=== PATIENT | female | born 1965 | race Caucasian/White ===

== ENCOUNTER 2019-06-14 08:09 | Observation (INO) ==
[2019-06-14] MEDS ORDERED: Naloxone 0.4 MG/ML INJ IVP PRN (10:51)
[2019-06-14] MEDS ORDERED: Ondansetron 4 MG/2 ML VIAL IVP PRN (10:51)
[2019-06-14] MEDS ORDERED: Furosemide 40 MG/4 ML VIAL IVP ONE (11:42)
[2019-06-14] MEDS ORDERED: *HR* Metoprolol 5 MG/5 ML VIAL IVP PRN (11:43)
[2019-06-14 13:34] LABS: Adenovirus Not Detected (Not Detect); Bordetella Pertussis Not Detected (Not Detect); Chlamydophila pneumoniae Not Detected (Not Detect); Coronavirus 229E Not Detected (Not Detect); Coronavirus HKU1 Not Detected (Not Detect); Coronavirus NL63 Not Detected (Not Detect); Coronavirus OC43 Not Detected (Not Detect); Human Metapneumovirus Not Detected (Not Detect); Human Rhinovirus/Enterovirus Not Detected (Not Detect); Influenza A Subtype 2009 H1 Not Detected (Not Detect); Influenza B Not Detected (Not Detect); Mycoplasma pneumoniae Not Detected (Not Detect); Parainfluenza Virus 1 Not Detected (Not Detect); Parainfluenza Virus 2 Not Detected (Not Detect); Parainfluenza Virus 3 Not Detected (Not Detect); Parainfluenza Virus 4 Not Detected (Not Detect); Respiratory Syncytial Virus Not Detected (Not Detect)
[2019-06-14] MEDS: Ipratropium/Albuterol Neb 3 ML IH SCH ×4 (15:33→23:26)
[2019-06-14] MEDS: MethylPREDNISolone 40 MG/ML VIAL IVP SCH (18:17)
[2019-06-15] MEDS: Ipratropium/Albuterol Neb 3 ML IH SCH ×5 (03:39→19:58)
[2019-06-15] MEDS: MethylPREDNISolone 40 MG/ML VIAL IVP SCH ×2 (05:14→16:47)
[2019-06-15 05:30] LABS: Basophils % 0.2 %; Hematocrit 39.7 % (35.3-44.9); Hemoglobin 12.3 g/dL (11.5-15.4); Immature Granulocytes % 0.9 % (0-4); Lymphocytes # 1.8 K/mcL (0.6-4.6); Lymphocytes % 10.2 %; Mean Corpuscular Hemoglobin 28.6 pg (28.0-33.3); Mean Corpuscular Volume 92.3 fL (83.0-100.0); Mean Platelet Volume 10.4 fL (9.4-12.4); Monocytes # 0.7 K/mcL (0.0-1.3); Monocytes % 4.1 %; Neutrophils # 14.9 K/mcL (1.6-8.9); Platelet Count 314 K/mcL (140-400); Red Cell Distribution Width 14.7 % (11.5-14.5); Segmented Neutrophils % 84.6 %; White Blood Count 17.6 K/mcL (4.3-11.1)
[2019-06-15 05:47] LABS: BUN/Creatinine Ratio 26 (6-26); Blood Urea Nitrogen 18 mg/dL (6-20); Calcium 9.1 mg/dL (8.6-10.3); Carbon Dioxide 31 mEq/L (23-29); Chloride 105 mEq/L (98-107); Glucose 183 mg/dL (70-105); Magnesium 2.1 mg/dL (1.6-2.6); Osmolality,Calculated 297 (280-300); Potassium 4.6 mEq/L (3.5-5.1); Sodium 140 mEq/L (136-145); eGFR For African Americans > 60 (> 60); eGFR For Non-African Americans > 60 (> 60)
[2019-06-15] MEDS ORDERED: Perflutren Lipid Microsphere 1.3 ML in 0.9 % Sodium Chloride 8.7 ML IVP ONE (07:25)
[2019-06-15] MEDS: Azithromycin 500 MG in 0.9 % Sodium Chloride 250 ML IVPB SCH (09:05)
[2019-06-15] MEDS: *HR* Rivaroxaban 10 MG TABLET PO SCH (16:46)
[2019-06-15] MEDS ORDERED: EPINEPHrine 1 MG/ML VIAL IM PRN (17:39)
[2019-06-15] MEDS ORDERED: Baclofen 10 MG TABLET PO PRN (17:39)
[2019-06-15] MEDS: Budesonide/Formoterol 160/4.5 1 PUFF INH IH SCH (19:59)
[2019-06-15] MEDS: Furosemide 40 MG TABLET PO SCH (21:07)
[2019-06-15] MEDS: Gabapentin 300 MG CAPSULE PO SCH (21:07)
[2019-06-16] MEDS: Ipratropium/Albuterol Neb 3 ML IH SCH ×6 (00:18→20:38)
[2019-06-16 05:02] LABS: Basophils % 0.2 %; Hematocrit 41.3 % (35.3-44.9); Hemoglobin 12.7 g/dL (11.5-15.4); Immature Granulocytes % 0.6 % (0-4); Lymphocytes # 2.8 K/mcL (0.6-4.6); Lymphocytes % 13.4 %; Mean Corpuscular HGB Conc 30.8 g/dL (31.6-35.5); Mean Corpuscular Hemoglobin 28.4 pg (28.0-33.3); Mean Corpuscular Volume 92.4 fL (83.0-100.0); Mean Platelet Volume 10.4 fL (9.4-12.4); Monocytes # 1.1 K/mcL (0.0-1.3); Monocytes % 5.5 %; Neutrophils # 16.6 K/mcL (1.6-8.9); Platelet Count 316 K/mcL (140-400); Red Blood Count 4.47 M/mcL (3.82-4.97); Red Cell Distribution Width 14.8 % (11.5-14.5); Segmented Neutrophils % 80.3 %; White Blood Count 20.6 K/mcL (4.3-11.1)
[2019-06-16] MEDS: MethylPREDNISolone 40 MG/ML VIAL IVP SCH ×2 (05:04→18:06)
[2019-06-16 05:15] LABS: BUN/Creatinine Ratio 38 (6-26); Blood Urea Nitrogen 26 mg/dL (6-20); Calcium 9.4 mg/dL (8.6-10.3); Carbon Dioxide 31 mEq/L (23-29); Chloride 103 mEq/L (98-107); Glucose 153 mg/dL (70-105); Osmolality,Calculated 294 (280-300); Sodium 138 mEq/L (136-145); eGFR For African Americans > 60 (> 60); eGFR For Non-African Americans > 60 (> 60)
[2019-06-16] MEDS: Budesonide/Formoterol 160/4.5 1 PUFF INH IH SCH ×2 (07:50→20:38)
[2019-06-16] MEDS: Aspirin Enteric Coated 81 MG Tablet PO SCH (08:05)
[2019-06-16] MEDS: Furosemide 40 MG TABLET PO SCH ×2 (08:05→15:21)
[2019-06-16] MEDS: Gabapentin 300 MG CAPSULE PO SCH ×3 (08:05→19:31)
[2019-06-16] MEDS: Cholecalciferol (D-3) 1,000 UNIT (25MCG) TABLET PO SCH (08:06)
[2019-06-16] MEDS: Azithromycin 500 MG in 0.9 % Sodium Chloride 250 ML IVPB SCH (08:10)
[2019-06-16] MEDS ORDERED: NON-FORMULARY MEDICATION 1 EACH EACH (Fluticasone/Vilanterol [Breo Ellipta 100-25 Mcg Inh] IH SCH (09:00)
[2019-06-16] MEDS: *HR* Rivaroxaban 10 MG TABLET PO SCH (15:21)
[2019-06-16] MEDS ORDERED: Benzonatate 100 MG CAPSULE PO PRN (16:10)
[2019-06-16] MEDS ORDERED: Acetaminophen 325 MG TABLET PO PRN (22:11)
[2019-06-16] MEDS ORDERED: *HR* OxyCODONE Immed Rel 5 MG TABLET PO PRN (23:16)
[2019-06-17] MEDS: Ipratropium/Albuterol Neb 3 ML IH SCH ×6 (00:23→20:16)
[2019-06-17] MEDS ORDERED: *HR* FentaNYL (PF) 100 MCG/2 ML VIAL IVP ONE (01:03)
[2019-06-17 04:22] LABS: Basophils % 0.2 %; Eosinophils % 0.1 %; Hematocrit 41.9 % (35.3-44.9); Hemoglobin 12.5 g/dL (11.5-15.4); Immature Granulocytes % 0.8 % (0-4); Lymphocytes # 1.9 K/mcL (0.6-4.6); Lymphocytes % 9.7 %; Mean Corpuscular HGB Conc 29.8 g/dL (31.6-35.5); Mean Corpuscular Hemoglobin 28.9 pg (28.0-33.3); Mean Platelet Volume 10.3 fL (9.4-12.4); Neutrophils # 16.1 K/mcL (1.6-8.9); Platelet Count 313 K/mcL (140-400); Red Blood Count 4.32 M/mcL (3.82-4.97); Red Cell Distribution Width 14.8 % (11.5-14.5); Segmented Neutrophils % 84.2 %; White Blood Count 19.1 K/mcL (4.3-11.1)
[2019-06-17 04:45] LABS: BUN/Creatinine Ratio 34 (6-26); Blood Urea Nitrogen 32 mg/dL (6-20); Calcium 9.2 mg/dL (8.6-10.3); Carbon Dioxide 32 mEq/L (23-29); Chloride 99 mEq/L (98-107); Glucose 188 mg/dL (70-105); Osmolality,Calculated 294 (280-300); Potassium 4.8 mEq/L (3.5-5.1); Sodium 136 mEq/L (136-145); eGFR For African Americans > 60 (> 60); eGFR For Non-African Americans > 60 (> 60)
[2019-06-17] MEDS: MethylPREDNISolone 40 MG/ML VIAL IVP SCH ×2 (05:38→17:52)
[2019-06-17] MEDS: Budesonide/Formoterol 160/4.5 1 PUFF INH IH SCH ×2 (07:20→20:16)
[2019-06-17] MEDS: Aspirin Enteric Coated 81 MG Tablet PO SCH (08:55)
[2019-06-17] MEDS: Cholecalciferol (D-3) 1,000 UNIT (25MCG) TABLET PO SCH (08:55)
[2019-06-17] MEDS: Gabapentin 300 MG CAPSULE PO SCH ×3 (08:55→19:35)
[2019-06-17] MEDS: Furosemide 40 MG TABLET PO SCH ×2 (08:55→15:31)
[2019-06-17] MEDS: Azithromycin 500 MG in 0.9 % Sodium Chloride 250 ML IVPB SCH (08:56)
[2019-06-17] MEDS: *HR* Rivaroxaban 10 MG TABLET PO SCH (15:30)
[2019-06-18] MEDS: Ipratropium/Albuterol Neb 3 ML IH SCH ×4 (00:05→10:46)
[2019-06-18] MEDS: MethylPREDNISolone 40 MG/ML VIAL IVP SCH (05:00)
[2019-06-18 05:51] LABS: Basophils # 0.1 K/mcL (0.0-0.2); Basophils % 0.3 %; Hematocrit 43.4 % (35.3-44.9); Hemoglobin 13.2 g/dL (11.5-15.4); Immature Granulocytes % 0.7 % (0-4); Lymphocytes # 2.1 K/mcL (0.6-4.6); Mean Corpuscular HGB Conc 30.4 g/dL (31.6-35.5); Mean Corpuscular Hemoglobin 28.6 pg (28.0-33.3); Mean Corpuscular Volume 94.1 fL (83.0-100.0); Mean Platelet Volume 10.6 fL (9.4-12.4); Monocytes # 1.3 K/mcL (0.0-1.3); Monocytes % 6.8 %; Neutrophils # 15.2 K/mcL (1.6-8.9); Platelet Count 330 K/mcL (140-400); Red Blood Count 4.61 M/mcL (3.82-4.97); Red Cell Distribution Width 15.1 % (11.5-14.5); Segmented Neutrophils % 81.2 %; White Blood Count 18.7 K/mcL (4.3-11.1)
[2019-06-18 06:13] LABS: BUN/Creatinine Ratio 43 (6-26); Blood Urea Nitrogen 34 mg/dL (6-20); Carbon Dioxide 36 mEq/L (23-29); Chloride 98 mEq/L (98-107); Glucose 158 mg/dL (70-105); Osmolality,Calculated 303 (280-300); Potassium 4.7 mEq/L (3.5-5.1); Sodium 141 mEq/L (136-145); eGFR For African Americans > 60 (> 60); eGFR For Non-African Americans > 60 (> 60)
[2019-06-18] MEDS: Budesonide/Formoterol 160/4.5 1 PUFF INH IH SCH (07:16)
[2019-06-18] MEDS: Gabapentin 300 MG CAPSULE PO SCH (08:22)
[2019-06-18] MEDS: Aspirin Enteric Coated 81 MG Tablet PO SCH (08:22)
[2019-06-18] MEDS: Furosemide 40 MG TABLET PO SCH (08:22)
[2019-06-18] MEDS: Cholecalciferol (D-3) 1,000 UNIT (25MCG) TABLET PO SCH (08:23)
[2019-06-18] MEDS: Azithromycin 500 MG in 0.9 % Sodium Chloride 250 ML IVPB SCH ×2 (08:23→08:59)
[2019-06-18 10:22] VITALS: BP 123/71
[2019-06-19] MEDS ORDERED: predniSONE 20 MG TABLET PO SCH (09:00)
[2019-06-27] MEDS ORDERED: Cyanocobalamin (B-12) 1,000 MCG/ML VIAL IM SCH (09:00)
== END 2019-06-18 12:59 | disposition home or self-care (01) ==
LOC: CDU → SUATTDRO 10:21 → CDU 10:42 → 3BNU 16:27
PROVIDERS: ADMIT Internal Medicine; ATTEND Family Medicine

== ENCOUNTER 2019-07-22 16:21 | Inpatient (IN) ==
[~2019-07-22 16:21] MED LIST: *HR* Etomidate 20 MG/10 ML AMPUL IVP ONE; *HR* Propofol 200 MG/20 ML VIAL IVP ONE; *HR* Succinylcholine 200 MG/10 ML VIAL IVP ONE; Aminoglycoside Consult 1 EACH MC ONE
[2019-07-22] MEDS ORDERED: Acetaminophen 325 MG TABLET PO PRN (20:08)
[2019-07-22] MEDS ORDERED: Naloxone 0.4 MG/ML INJ IVP PRN (20:08)
[2019-07-22] MEDS ORDERED: Ondansetron 4 MG/2 ML VIAL IVP PRN (20:08)
[2019-07-22 20:43] LABS: ABG Base Excess 5 mEq/L (-2 to 3); ABG HCO3 37 mEq/L (21-27); ABG Oxygen Saturation 89 % (95-98); ABG PCO2 97 mmHg (35-45); ABG PH 7.19 pH Units (7.32-7.45); ABG PO2 74 mmHg (85-104); ABG TCO2 40 mEq/L (20-26)
[2019-07-22 20:47] LABS: Lymphocytes % 5.1 %; Mean Corpuscular Volume 98.7 fL (83.0-100.0); Mean Platelet Volume 10.4 fL (9.4-12.4); Monocytes % 0.8 %; Nucleated Red Blood Cells 0.7 /100 WBC (0)
[2019-07-22 20:48] LABS: Basophils # 0.1 K/mcL (0.0-0.2); Basophils % 0.4 %; Hematocrit 45.5 % (35.3-44.9); Immature Granulocytes % 1.6 % (0-4); Mean Corpuscular HGB Conc 28.6 g/dL (31.6-35.5); Mean Corpuscular Hemoglobin 28.2 pg (28.0-33.3); Monocytes # 0.2 K/mcL (0.0-1.3); Neutrophils # 18.4 K/mcL (1.6-8.9); Platelet Count 278 K/mcL (140-400); Red Blood Count 4.61 M/mcL (3.82-4.97); Red Cell Distribution Width 16.6 % (11.5-14.5); Segmented Neutrophils % 92.1 %
[2019-07-22 21:07] LABS: Anisocytosis 1+ (Not Present); Hypochromasia Present (Not Present); Macrocytosis Present (Not Present); Platelet Estimate Normal (Normal); Polychromasia 1+ (Not Present)
[2019-07-22 21:38] LABS: Alanine Aminotransferase 35 Units/L (7-52); Albumin 3.7 g/dL (3.5-5.7); Albumin/Globulin Ratio 1.1 (1.1-2.2); Alkaline Phosphatase 119 Units/L (34-104); Aspartate Amino Transferase 21 Units/L (13-39); BUN/Creatinine Ratio 25 (6-26); Bilirubin,Total 0.4 mg/dL (0.3-1.0); Blood Urea Nitrogen 26 mg/dL (6-20); Carbon Dioxide 34 mEq/L (23-29); Chloride 100 mEq/L (98-107); Globulin 3.4 g/dL (2.4-3.5); Glucose 168 mg/dL (70-105); Osmolality,Calculated 297 (280-300); Potassium 5.1 mEq/L (3.5-5.1); Sodium 139 mEq/L (136-145); Total Protein 7.1 g/dL (6.4-8.9); eGFR For African Americans > 60 (> 60); eGFR For Non-African Americans 55 (> 60)
[2019-07-22] MEDS ORDERED: *HR* Heparin 5,000 UNIT/ML VIAL IVP PRN ×2 (22:01)
[2019-07-22] MEDS ORDERED: *HR* Heparin 5,000 UNIT/ML VIAL IVP ONE (22:01)
[2019-07-22] MEDS ORDERED: Furosemide 40 MG/4 ML VIAL IVP ONE (22:06)
[2019-07-22] MEDS ORDERED: Heparin 25,000 UNIT/250 ML D5W 25,000 UNIT/250 ML IV.SOLN IVC SCH (22:15)
[2019-07-22 22:39] LABS: Hematocrit 45.1 % (35.3-44.9); Hemoglobin 12.7 g/dL (11.5-15.4); Mean Corpuscular HGB Conc 28.2 g/dL (31.6-35.5); Mean Corpuscular Hemoglobin 27.7 pg (28.0-33.3); Mean Corpuscular Volume 98.5 fL (83.0-100.0); Mean Platelet Volume 10.8 fL (9.4-12.4); Platelet Count 293 K/mcL (140-400); Red Blood Count 4.58 M/mcL (3.82-4.97); Red Cell Distribution Width 16.7 % (11.5-14.5); White Blood Count 18.1 K/mcL (4.3-11.1)
[2019-07-22 22:49] LABS: Heparin anti-factor XA UFH 0.26 IU/mL (0.30-0.70); INR 1.2; Prothrombin Time 13.5 Seconds (9.4-12.1)
[2019-07-22] MEDS: FentaNYL (PF) 1,000 MCG in 0.9 % Sodium Chloride 80 ML IVC SCH (22:49)
[2019-07-22 23:59] LABS: ABG Base Excess 9 mEq/L (-2 to 3); ABG HCO3 38 mEq/L (21-27); ABG Oxygen Saturation 91 % (95-98); ABG PCO2 72 mmHg (35-45); ABG PH 7.33 pH Units (7.32-7.45); ABG PO2 69 mmHg (85-104); ABG TCO2 41 mEq/L (20-26); Blood Gas Modality ASSIST CONTROL; Blood Gas VT 600 cc
[2019-07-23] MEDS ORDERED: Piperacillin/Tazobactam 3.375 GM in 0.9 % Sodium Chloride Mini Bag 100 ML IVPB SCH
[2019-07-23 02:33] LABS: Basophils % 0.2 %; INR 1.3; Mean Platelet Volume 10.6 fL (9.4-12.4); Monocytes % 2.2 %; Platelet Count 256 K/mcL (140-400); Prothrombin Time 14.3 Seconds (9.4-12.1)
[2019-07-23 02:34] LABS: Hematocrit 42.7 % (35.3-44.9); Hemoglobin 12.4 g/dL (11.5-15.4); Immature Granulocytes % 1.1 % (0-4); Lymphocytes # 1.8 K/mcL (0.6-4.6); Lymphocytes % 9.6 %; Mean Corpuscular Volume 96.4 fL (83.0-100.0); Monocytes # 0.4 K/mcL (0.0-1.3); Neutrophils # 16.4 K/mcL (1.6-8.9); Nucleated Red Blood Cells 0.8 /100 WBC (0); Red Blood Count 4.43 M/mcL (3.82-4.97); Red Cell Distribution Width 16.6 % (11.5-14.5); Segmented Neutrophils % 86.9 %; White Blood Count 18.9 K/mcL (4.3-11.1)
[2019-07-23 02:51] LABS: Alanine Aminotransferase 31 Units/L (7-52); Albumin 3.5 g/dL (3.5-5.7); Albumin/Globulin Ratio 1.2 (1.1-2.2); Alkaline Phosphatase 107 Units/L (34-104); Aspartate Amino Transferase 17 Units/L (13-39); BUN/Creatinine Ratio 27 (6-26); Bilirubin,Total 0.5 mg/dL (0.3-1.0); Blood Urea Nitrogen 27 mg/dL (6-20); Carbon Dioxide 33 mEq/L (23-29); Chloride 99 mEq/L (98-107); Globulin 2.9 g/dL (2.4-3.5); Glucose 178 mg/dL (70-105); Magnesium 2.1 mg/dL (1.6-2.6); Osmolality,Calculated 300 (280-300); Potassium 4.4 mEq/L (3.5-5.1); Sodium 140 mEq/L (136-145); Total Protein 6.4 g/dL (6.4-8.9); eGFR For African Americans > 60 (> 60); eGFR For Non-African Americans 59 (> 60)
[2019-07-23] MEDS: Artificial Tears SOLN 15 ML BOTTLE BOTH EYES SCH ×6 (03:22→23:03)
[2019-07-23 03:31] LABS: Anisocytosis 1+ (Not Present); Hypochromasia Present (Not Present); Macrocytosis Present (Not Present); Platelet Estimate Normal (Normal); Polychromasia 1+ (Not Present)
[2019-07-23 04:29] LABS: ABG Base Excess 12 mEq/L (-2 to 3); ABG HCO3 40 mEq/L (21-27); ABG Oxygen Saturation 92 % (95-98); ABG PCO2 64 mmHg (35-45); ABG PO2 66 mmHg (85-104); ABG TCO2 42 mEq/L (20-26); Blood Gas Modality ASSIST CONTROL; Blood Gas VT 600 cc
[2019-07-23 06:08] LABS: Adenovirus Not Detected (Not Detect); Bordetella Pertussis Not Detected (Not Detect); Chlamydophila pneumoniae Not Detected (Not Detect); Coronavirus 229E Not Detected (Not Detect); Coronavirus HKU1 Not Detected (Not Detect); Coronavirus NL63 Not Detected (Not Detect); Coronavirus OC43 Not Detected (Not Detect); Human Metapneumovirus Not Detected (Not Detect); Human Rhinovirus/Enterovirus Not Detected (Not Detect); Influenza A Subtype 2009 H1 Not Detected (Not Detect); Influenza B Not Detected (Not Detect); Mycoplasma pneumoniae Not Detected (Not Detect); Parainfluenza Virus 1 Not Detected (Not Detect); Parainfluenza Virus 2 Not Detected (Not Detect); Parainfluenza Virus 3 Not Detected (Not Detect); Parainfluenza Virus 4 Not Detected (Not Detect); Respiratory Syncytial Virus Not Detected (Not Detect)
[2019-07-23] MEDS ORDERED: Isovue-370 500 ML BOTTLE IVP ONE (07:38)
[2019-07-23] MEDS ORDERED: Ipratropium/Albuterol Neb 3 ML IH ONE (07:51)
[2019-07-23] MEDS ORDERED: Perflutren Lipid Microsphere 1.3 ML in 0.9 % Sodium Chloride 8.7 ML IVP ONE (08:57)
[2019-07-23] MEDS ORDERED: Furosemide 40 MG/4 ML VIAL IVP SCH (09:00)
[2019-07-23] MEDS: Chlorhexidine Rinse 15 ML MOUTHWASH MM SCH ×2 (09:01→21:17)
[2019-07-23] MEDS: Pantoprazole 40 MG VIAL IVP SCH (09:01)
[2019-07-23] MEDS: methylPREDNISolone 125 MG/2 ML VIAL IVP SCH ×2 (09:16→16:54)
[2019-07-23] MEDS: Albuterol 2.5 MG/3 ML NEBULIZER IH SCH ×5 (09:53→23:32)
[2019-07-23] MEDS: Azithromycin 500 MG in 0.9 % Sodium Chloride 250 ML IVPB SCH (10:36)
[2019-07-23] MEDS: Cefepime HCl 1,000 MG in Water for inj. (sterile) 10 ML IVP SCH ×3 (10:36→23:04)
[2019-07-23] MEDS: Budesonide/Formoterol 80/4.5 1 PUFF INH IH SCH ×2 (11:01→19:32)
[2019-07-23 12:38] LABS: ABG Base Excess 11 mEq/L (-2 to 3); ABG HCO3 42 mEq/L (21-27); ABG Oxygen Saturation 92 % (95-98); ABG PCO2 85 mmHg (35-45); ABG PO2 76 mmHg (85-104); ABG TCO2 45 mEq/L (20-26); Blood Gas Modality AF; Blood Gas VT 500 cc
[2019-07-23] MEDS ORDERED: Potassium Phosphate 44 MEQ in 0.9 % Sodium Chloride 250 ML IVPB PRN (13:01)
[2019-07-23 14:28] LABS: ABG Base Excess 11 mEq/L (-2 to 3); ABG HCO3 40 mEq/L (21-27); ABG Oxygen Saturation 91 % (95-98); ABG PCO2 71 mmHg (35-45); ABG PH 7.36 pH Units (7.32-7.45); ABG PO2 66 mmHg (85-104); ABG TCO2 42 mEq/L (20-26); Blood Gas Modality AF; Blood Gas VT 520 cc
[2019-07-23] MEDS: Bumetanide 1 MG/4 ML VIAL IVP SCH (14:36)
[2019-07-23] MEDS: FentaNYL (PF) 1,000 MCG in 0.9 % Sodium Chloride 80 ML IVC SCH (16:30)
[2019-07-23] MEDS ORDERED: Bumetanide 1 MG/4 ML VIAL IVP SCH (17:00)
[2019-07-23] MEDS ORDERED: Albuterol 2.5 MG/3 ML NEBULIZER ONE (19:37)
[2019-07-23] MEDS: *HR* Heparin 5,000 UNIT/ML VIAL SQ SCH (21:17)
[2019-07-24] MEDS: Albuterol 2.5 MG/3 ML NEBULIZER IH SCH ×6 (03:00→23:45)
[2019-07-24] MEDS: Artificial Tears SOLN 15 ML BOTTLE BOTH EYES SCH ×6 (04:19→23:22)
[2019-07-24 04:47] LABS: Lymphocytes % 5.5 %; Red Cell Distribution Width 17.2 % (11.5-14.5)
[2019-07-24 04:48] LABS: Nucleated Red Blood Cells 0.3 /100 WBC (0)
[2019-07-24 04:49] LABS: Basophils % 0.2 %; Hematocrit 42.8 % (35.3-44.9); Hemoglobin 12.7 g/dL (11.5-15.4); Immature Granulocytes % 0.9 % (0-4); Lymphocytes # 0.8 K/mcL (0.6-4.6); Mean Corpuscular HGB Conc 29.7 g/dL (31.6-35.5); Mean Corpuscular Hemoglobin 28.2 pg (28.0-33.3); Mean Corpuscular Volume 95.1 fL (83.0-100.0); Mean Platelet Volume 10.6 fL (9.4-12.4); Monocytes # 0.8 K/mcL (0.0-1.3); Platelet Count 252 K/mcL (140-400); Segmented Neutrophils % 88.4 %; White Blood Count 15.1 K/mcL (4.3-11.1)
[2019-07-24 04:51] LABS: VBG Ionized Calcium 1.16 mmol/L (1.15-1.35)
[2019-07-24 04:59] LABS: ABG Base Excess 11 mEq/L (-2 to 3); ABG HCO3 40 mEq/L (21-27); ABG Oxygen Saturation 94 % (95-98); ABG PCO2 69 mmHg (35-45); ABG PH 7.37 pH Units (7.32-7.45); ABG PO2 75 mmHg (85-104); ABG TCO2 42 mEq/L (20-26); Blood Gas Modality ASSIST CONTROL; Blood Gas VT 520 cc
[2019-07-24] MEDS: methylPREDNISolone 125 MG/2 ML VIAL IVP SCH ×2 (05:05→17:03)
[2019-07-24] MEDS: *HR* Heparin 5,000 UNIT/ML VIAL SQ SCH ×3 (05:05→20:23)
[2019-07-24 05:07] LABS: Alanine Aminotransferase 25 Units/L (7-52); Albumin 3.6 g/dL (3.5-5.7); Albumin/Globulin Ratio 1.2 (1.1-2.2); Alkaline Phosphatase 94 Units/L (34-104); Aspartate Amino Transferase 11 Units/L (13-39); BUN/Creatinine Ratio 38 (6-26); Bilirubin,Direct 0.2 mg/dL (0.0-0.2); Bilirubin,Indirect 0.2 mg/dL (0.0-1.0); Bilirubin,Total 0.4 mg/dL (0.3-1.0); Blood Urea Nitrogen 34 mg/dL (6-20); Calcium 9.2 mg/dL (8.6-10.3); Carbon Dioxide 34 mEq/L (23-29); Chloride 98 mEq/L (98-107); Glucose 171 mg/dL (70-105); Magnesium 2.4 mg/dL (1.6-2.6); Osmolality,Calculated 304 (280-300); Sodium 141 mEq/L (136-145); Total Protein 6.6 g/dL (6.4-8.9); eGFR For African Americans > 60 (> 60); eGFR For Non-African Americans > 60 (> 60)
[2019-07-24 05:14] LABS: Neutrophils # 13.4 K/mcL (1.6-8.9)
[2019-07-24 05:15] LABS: Anisocytosis 1+ (Not Present); Hypochromasia Present (Not Present); Platelet Estimate Normal (Normal)
[2019-07-24] MEDS: Budesonide/Formoterol 80/4.5 1 PUFF INH IH SCH ×2 (07:33→19:42)
[2019-07-24] MEDS: Chlorhexidine Rinse 15 ML MOUTHWASH MM SCH ×2 (08:52→20:23)
[2019-07-24] MEDS: Bumetanide 1 MG/4 ML VIAL IVP SCH ×2 (08:53→17:03)
[2019-07-24] MEDS: Pantoprazole 40 MG VIAL IVP SCH (08:53)
[2019-07-24] MEDS: Cefepime HCl 1,000 MG in Water for inj. (sterile) 10 ML IVP SCH ×3 (08:53→23:21)
[2019-07-24] MEDS: Azithromycin 500 MG in 0.9 % Sodium Chloride 250 ML IVPB SCH (08:53)
[2019-07-24] MEDS: FentaNYL (PF) 1,000 MCG in 0.9 % Sodium Chloride 80 ML IVC SCH (14:29)
[2019-07-25] MEDS: Albuterol 2.5 MG/3 ML NEBULIZER IH SCH ×5 (03:50→20:44)
[2019-07-25] MEDS: Artificial Tears SOLN 15 ML BOTTLE BOTH EYES SCH ×6 (03:57→23:30)
[2019-07-25 04:33] LABS: ABG Base Excess 11 mEq/L (-2 to 3); ABG HCO3 42 mEq/L (21-27); ABG Oxygen Saturation 88 % (95-98); ABG PCO2 86 mmHg (35-45); ABG PO2 64 mmHg (85-104); ABG TCO2 45 mEq/L (20-26); Blood Gas Modality AF; Blood Gas VT 520 cc
[2019-07-25 05:58] LABS: Basophils % 0.1 %; Lymphocytes % 6.8 %; Monocytes % 6.2 %; Nucleated Red Blood Cells 0.1 /100 WBC (0); Red Cell Distribution Width 17.1 % (11.5-14.5)
[2019-07-25 05:59] LABS: Hematocrit 44.5 % (35.3-44.9); Hemoglobin 12.7 g/dL (11.5-15.4); Immature Granulocytes % 0.7 % (0-4); Mean Corpuscular HGB Conc 28.5 g/dL (31.6-35.5); Mean Corpuscular Hemoglobin 27.5 pg (28.0-33.3); Mean Corpuscular Volume 96.3 fL (83.0-100.0); Mean Platelet Volume 10.3 fL (9.4-12.4); Monocytes # 0.9 K/mcL (0.0-1.3); Neutrophils # 12.6 K/mcL (1.6-8.9); Platelet Count 253 K/mcL (140-400); Red Blood Count 4.62 M/mcL (3.82-4.97); Segmented Neutrophils % 86.2 %; White Blood Count 14.6 K/mcL (4.3-11.1)
[2019-07-25 06:00] LABS: VBG Ionized Calcium 1.09 mmol/L (1.15-1.35)
[2019-07-25] MEDS: *HR* Heparin 5,000 UNIT/ML VIAL SQ SCH (06:03)
[2019-07-25] MEDS: methylPREDNISolone 125 MG/2 ML VIAL IVP SCH ×2 (06:03→17:28)
[2019-07-25 06:16] LABS: Anisocytosis 1+ (Not Present); Hypochromasia Present (Not Present); Platelet Estimate Normal (Normal)
[2019-07-25 06:20] LABS: BUN/Creatinine Ratio 51 (6-26); Blood Urea Nitrogen 39 mg/dL (6-20); Calcium 9.1 mg/dL (8.6-10.3); Carbon Dioxide 38 mEq/L (23-29); Chloride 98 mEq/L (98-107); Glucose 154 mg/dL (70-105); Magnesium 2.6 mg/dL (1.6-2.6); Osmolality,Calculated 302 (280-300); Phosphorous 5.9 mg/dL (2.7-4.5); Potassium 4.3 mEq/L (3.5-5.1); Sodium 140 mEq/L (136-145); eGFR For African Americans > 60 (> 60); eGFR For Non-African Americans > 60 (> 60)
[2019-07-25] MEDS: Budesonide/Formoterol 80/4.5 1 PUFF INH IH SCH ×2 (07:35→20:44)
[2019-07-25] MEDS: FentaNYL (PF) 1,000 MCG in 0.9 % Sodium Chloride 80 ML IVC SCH (08:59)
[2019-07-25] MEDS ORDERED: *HR* Heparin 5,000 UNIT/ML VIAL IVP PRN ×2 (09:08)
[2019-07-25] MEDS ORDERED: *HR* Heparin 5,000 UNIT/ML VIAL IVP ONE (09:08)
[2019-07-25] MEDS: Bumetanide 1 MG/4 ML VIAL IVP SCH ×2 (09:22→17:29)
[2019-07-25] MEDS: Chlorhexidine Rinse 15 ML MOUTHWASH MM SCH ×2 (09:22→21:53)
[2019-07-25] MEDS: Cefepime HCl 1,000 MG in Water for inj. (sterile) 10 ML IVP SCH (09:22)
[2019-07-25] MEDS: Pantoprazole 40 MG VIAL IVP SCH ×2 (09:22→21:53)
[2019-07-25] MEDS: Azithromycin 500 MG in 0.9 % Sodium Chloride 250 ML IVPB SCH (09:22)
[2019-07-25] MEDS: Aspirin 81 MG TAB.CHEW PO SCH (11:01)
[2019-07-25 12:37] LABS: Heparin anti-factor XA UFH 0.04 IU/mL (0.30-0.70); Prothrombin Time 11.7 Seconds (9.4-12.1)
[2019-07-25 12:39] LABS: Activated Partial Thrombo Time 25.1 Seconds (26.0-36.0)
[2019-07-25 12:40] LABS: Hematocrit 44.3 % (35.3-44.9); Mean Corpuscular HGB Conc 29.3 g/dL (31.6-35.5); Mean Corpuscular Hemoglobin 27.9 pg (28.0-33.3); Mean Corpuscular Volume 95.1 fL (83.0-100.0); Mean Platelet Volume 10.7 fL (9.4-12.4); Platelet Count 246 K/mcL (140-400); Red Blood Count 4.66 M/mcL (3.82-4.97); Red Cell Distribution Width 17.2 % (11.5-14.5); White Blood Count 14.2 K/mcL (4.3-11.1)
[2019-07-25] MEDS: Heparin 25,000 UNIT/250 ML D5W 25,000 UNIT/250 ML IV.SOLN IVC SCH ×2 (12:44→23:30)
[2019-07-25] MEDS: Cefepime HCl 2,000 MG in Water for inj. (sterile) 20 ML IVP SCH ×2 (14:33→21:53)
[2019-07-25] MEDS ORDERED: Scopolamine Patch 1.5 MG PATCH.TD72 TD ONE (20:43)
[2019-07-26] MEDS: Albuterol 2.5 MG/3 ML NEBULIZER IH SCH ×7 (00:28→23:38)
[2019-07-26] MEDS: FentaNYL (PF) 1,000 MCG in 0.9 % Sodium Chloride 80 ML IVC SCH (04:12)
[2019-07-26] MEDS: Artificial Tears SOLN 15 ML BOTTLE BOTH EYES SCH ×4 (04:12→17:18)
[2019-07-26] MEDS: methylPREDNISolone 125 MG/2 ML VIAL IVP SCH ×2 (04:13→17:32)
[2019-07-26] MEDS: Cefepime HCl 2,000 MG in Water for inj. (sterile) 20 ML IVP SCH ×3 (04:13→21:38)
[2019-07-26 04:30] LABS: ABG Base Excess 14 mEq/L (-2 to 3); ABG HCO3 43 mEq/L (21-27); ABG Oxygen Saturation 95 % (95-98); ABG PCO2 76 mmHg (35-45); ABG PH 7.36 pH Units (7.32-7.45); ABG PO2 83 mmHg (85-104); ABG TCO2 45 mEq/L (20-26); Blood Gas Modality ASSIST CONTROL; Blood Gas VT 520 cc
[2019-07-26 04:35] LABS: VBG Ionized Calcium 1.14 mmol/L (1.15-1.35)
[2019-07-26 04:36] LABS: Basophils % 0.1 %; Hematocrit 42.8 % (35.3-44.9); Hemoglobin 12.4 g/dL (11.5-15.4); Immature Granulocytes % 0.6 % (0-4); Lymphocytes % 8.2 %; Mean Corpuscular Hemoglobin 27.3 pg (28.0-33.3); Mean Corpuscular Volume 94.1 fL (83.0-100.0); Mean Platelet Volume 10.8 fL (9.4-12.4); Monocytes % 8.1 %; Neutrophils # 10.3 K/mcL (1.6-8.9); Nucleated Red Blood Cells 0.2 /100 WBC (0); Platelet Count 233 K/mcL (140-400); Red Blood Count 4.55 M/mcL (3.82-4.97); White Blood Count 12.4 K/mcL (4.3-11.1)
[2019-07-26 04:52] LABS: BUN/Creatinine Ratio 65 (6-26); Blood Urea Nitrogen 45 mg/dL (6-20); Carbon Dioxide 41 mEq/L (23-29); Chloride 97 mEq/L (98-107); Glucose 166 mg/dL (70-105); Magnesium 2.6 mg/dL (1.6-2.6); Osmolality,Calculated 307 (280-300); Phosphorous 4.8 mg/dL (2.7-4.5); Potassium 4.3 mEq/L (3.5-5.1); Sodium 141 mEq/L (136-145); eGFR For African Americans > 60 (> 60); eGFR For Non-African Americans > 60 (> 60)
[2019-07-26] MEDS: Budesonide/Formoterol 80/4.5 1 PUFF INH IH SCH ×2 (07:24→19:42)
[2019-07-26] MEDS: Pantoprazole 40 MG VIAL IVP SCH ×2 (08:52→19:49)
[2019-07-26] MEDS: Chlorhexidine Rinse 15 ML MOUTHWASH MM SCH ×2 (08:52→19:49)
[2019-07-26] MEDS: Azithromycin 500 MG in 0.9 % Sodium Chloride 250 ML IVPB SCH (08:53)
[2019-07-26] MEDS: Aspirin 81 MG TAB.CHEW PO SCH (08:53)
[2019-07-26] MEDS: Bumetanide 1 MG/4 ML VIAL IVP SCH ×2 (08:53→17:32)
[2019-07-26] MEDS ORDERED: Ipratropium/Albuterol Neb 3 ML IH ONE (09:01)
[2019-07-26] MEDS ORDERED: Ipratropium/Albuterol Neb 3 ML ONE (09:04)
[2019-07-26] MEDS: Calcium Gluconate 1gm/50mL 1 GM/50 ML BAG IVPB PRN ×2 (09:06→09:36)
[2019-07-26] MEDS ORDERED: Dexmedetomidine HCl 400 MCG/100 ML MLS IVC ONE (12:47)
[2019-07-26] MEDS: Dexmedetomidine HCl 400 MCG/100 ML MLS IVC SCH ×3 (12:50→23:16)
[2019-07-26] MEDS ORDERED: Morphine Sulfate 2 MG/ML SYRINGE IVP PRN (12:57)
[2019-07-26] MEDS ORDERED: *HR* LORazepam 2 MG/ML VIAL IVP PRN (12:59)
[2019-07-26] MEDS: Heparin 25,000 UNIT/250 ML D5W 25,000 UNIT/250 ML IV.SOLN IVC SCH (15:28)
[2019-07-27 03:46] LABS: Immature Granulocytes % 0.7 % (0-4); Platelet Count 208 K/mcL (140-400); Red Cell Distribution Width 16.7 % (11.5-14.5)
[2019-07-27 03:48] LABS: Basophils % 0.2 %; Hematocrit 43.7 % (35.3-44.9); Hemoglobin 12.9 g/dL (11.5-15.4); Lymphocytes # 1.5 K/mcL (0.6-4.6); Lymphocytes % 11.4 %; Mean Corpuscular HGB Conc 29.5 g/dL (31.6-35.5); Mean Corpuscular Hemoglobin 27.6 pg (28.0-33.3); Mean Corpuscular Volume 93.4 fL (83.0-100.0); Mean Platelet Volume 10.7 fL (9.4-12.4); Monocytes % 7.4 %; Neutrophils # 10.6 K/mcL (1.6-8.9); Red Blood Count 4.68 M/mcL (3.82-4.97); Segmented Neutrophils % 80.3 %; White Blood Count 13.2 K/mcL (4.3-11.1)
[2019-07-27 03:49] LABS: VBG Ionized Calcium 1.14 mmol/L (1.15-1.35)
[2019-07-27 04:10] LABS: BUN/Creatinine Ratio 68 (6-26); Blood Urea Nitrogen 42 mg/dL (6-20); Calcium 9.5 mg/dL (8.6-10.3); Carbon Dioxide 44 mEq/L (23-29); Chloride 96 mEq/L (98-107); Glucose 181 mg/dL (70-105); Magnesium 2.6 mg/dL (1.6-2.6); Osmolality,Calculated 311 (280-300); Phosphorous 3.4 mg/dL (2.7-4.5); Potassium 4.3 mEq/L (3.5-5.1); Sodium 143 mEq/L (136-145); eGFR For African Americans > 60 (> 60); eGFR For Non-African Americans > 60 (> 60)
[2019-07-27] MEDS: Albuterol 2.5 MG/3 ML NEBULIZER IH SCH ×6 (04:15→23:53)
[2019-07-27 04:31] LABS: Platelet Estimate Normal (Normal)
[2019-07-27] MEDS: methylPREDNISolone 125 MG/2 ML VIAL IVP SCH ×2 (05:33→17:14)
[2019-07-27] MEDS: Cefepime HCl 2,000 MG in Water for inj. (sterile) 20 ML IVP SCH (05:33)
[2019-07-27] MEDS: Heparin 25,000 UNIT/250 ML D5W 25,000 UNIT/250 ML IV.SOLN IVC SCH ×4 (05:34→17:00)
[2019-07-27] MEDS: Dexmedetomidine HCl 400 MCG/100 ML MLS IVC SCH (05:50)
[2019-07-27] MEDS: Budesonide/Formoterol 80/4.5 1 PUFF INH IH SCH (07:37)
[2019-07-27] MEDS: Aspirin 81 MG TAB.CHEW PO SCH (07:44)
[2019-07-27] MEDS: Chlorhexidine Rinse 15 ML MOUTHWASH MM SCH ×2 (07:51→20:46)
[2019-07-27] MEDS: Bumetanide 1 MG/4 ML VIAL IVP SCH ×2 (07:51→17:15)
[2019-07-27] MEDS: Pantoprazole 40 MG VIAL IVP SCH ×2 (07:52→20:53)
[2019-07-27] MEDS: Calcium Gluconate 1gm/50mL 1 GM/50 ML BAG IVPB SCH ×2 (09:24→09:27)
[2019-07-27] MEDS: Azithromycin 500 MG in 0.9 % Sodium Chloride 250 ML IVPB SCH (09:27)
[2019-07-27] MEDS ORDERED: *HR* Heparin 5,000 UNIT/ML VIAL IVP PRN ×2 (10:38)
[2019-07-27] MEDS ORDERED: *HR* LORazepam 2 MG/ML VIAL IVP PRN (10:38)
[2019-07-27] MEDS ORDERED: Ondansetron 4 MG/2 ML VIAL IVP PRN (10:38)
[2019-07-27] MEDS ORDERED: Acetaminophen 325 MG TABLET PO PRN (10:38)
[2019-07-27] MEDS ORDERED: (Diclofenac Sodium [Voltaren] 4 GM) TP PRN (10:38)
[2019-07-27] MEDS ORDERED: Naloxone 0.4 MG/ML INJ IVP PRN (10:38)
[2019-07-27] MEDS: Budesonide/Formoterol 160/4.5 1 PUFF INH IH SCH (20:13)
[2019-07-27] MEDS ORDERED: Budesonide/Formoterol 80/4.5 1 PUFF INH IH SCH (22:00)
[2019-07-28 04:02] LABS: Basophils % 0.1 %; Hematocrit 42.4 % (35.3-44.9); Hemoglobin 12.3 g/dL (11.5-15.4); Immature Granulocytes % 0.4 % (0-4); Lymphocytes # 1.9 K/mcL (0.6-4.6); Lymphocytes % 11.7 %; Mean Corpuscular Hemoglobin 27.7 pg (28.0-33.3); Mean Corpuscular Volume 95.5 fL (83.0-100.0); Mean Platelet Volume 11.1 fL (9.4-12.4); Monocytes # 1.1 K/mcL (0.0-1.3); Monocytes % 6.8 %; Neutrophils # 13.4 K/mcL (1.6-8.9); Platelet Count 212 K/mcL (140-400); Red Blood Count 4.44 M/mcL (3.82-4.97); Red Cell Distribution Width 16.5 % (11.5-14.5); White Blood Count 16.5 K/mcL (4.3-11.1)
[2019-07-28] MEDS: Albuterol 2.5 MG/3 ML NEBULIZER IH SCH ×6 (04:02→23:46)
[2019-07-28] MEDS: Heparin 25,000 UNIT/250 ML D5W 25,000 UNIT/250 ML IV.SOLN IVC SCH ×2 (04:30→21:26)
[2019-07-28 04:48] LABS: BUN/Creatinine Ratio 66 (6-26); Blood Urea Nitrogen 40 mg/dL (6-20); Calcium 9.1 mg/dL (8.6-10.3); Carbon Dioxide > 45 mEq/L (23-29); Chloride 97 mEq/L (98-107); Glucose 117 mg/dL (70-105); Magnesium 2.4 mg/dL (1.6-2.6); Osmolality,Calculated 311 (280-300); Potassium 3.8 mEq/L (3.5-5.1); Sodium 145 mEq/L (136-145); eGFR For African Americans > 60 (> 60); eGFR For Non-African Americans > 60 (> 60)
[2019-07-28] MEDS: methylPREDNISolone 125 MG/2 ML VIAL IVP SCH (05:27)
[2019-07-28] MEDS: Budesonide/Formoterol 160/4.5 1 PUFF INH IH SCH ×2 (07:47→19:51)
[2019-07-28] MEDS ORDERED: Cefepime HCl 2,000 MG in 0.9 % Sodium Chloride Mini Bag 100 ML IVPB SCH (08:15)
[2019-07-28] MEDS ORDERED: Azithromycin 500 MG in 0.9 % Sodium Chloride 250 ML IVPB SCH (09:00)
[2019-07-28] MEDS: Bumetanide 1 MG/4 ML VIAL IVP SCH (09:14)
[2019-07-28] MEDS: Pantoprazole 40 MG VIAL IVP SCH ×2 (09:15→20:02)
[2019-07-28] MEDS: Aspirin 81 MG TAB.CHEW PO SCH (09:15)
[2019-07-28] MEDS: Chlorhexidine Rinse 15 ML MOUTHWASH MM SCH ×2 (09:16→20:00)
[2019-07-28] MEDS ORDERED: Trolamine Salicylate/Aloe Vera 85 APPL/85 GM TUBE TP PRN (09:30)
[2019-07-28 10:15] LABS: ABG Base Excess 16 mEq/L (-2 to 3); ABG HCO3 45 mEq/L (21-27); ABG Oxygen Saturation 92 % (95-98); ABG PCO2 75 mmHg (35-45); ABG PH 7.39 pH Units (7.32-7.45); ABG PO2 70 mmHg (85-104); ABG TCO2 48 mEq/L (20-26); Blood Gas Modality NIV; Blood Gas VT 550 cc
[2019-07-28] MEDS: cefTRIAXone 1,000 MG in Water for inj. (sterile) 10 ML IVP SCH (15:55)
[2019-07-28] MEDS: Furosemide 40 MG TABLET PO SCH (17:11)
[2019-07-28] MEDS: MethylPREDNISolone 40 MG/ML VIAL IVP SCH (17:11)
[2019-07-28] MEDS: *HR* Rivaroxaban 10 MG TABLET PO SCH (17:11)
[2019-07-29] MEDS: Albuterol 2.5 MG/3 ML NEBULIZER IH SCH ×6 (03:38→23:46)
[2019-07-29 03:52] LABS: Basophils % 0.1 %; Eosinophils % 0.2 %; Hemoglobin 11.8 g/dL (11.5-15.4); Immature Granulocytes % 0.5 % (0-4)
[2019-07-29 03:53] LABS: Hematocrit 40.6 % (35.3-44.9); Lymphocytes % 10.7 %; Mean Corpuscular HGB Conc 29.1 g/dL (31.6-35.5); Mean Corpuscular Hemoglobin 27.9 pg (28.0-33.3); Mean Platelet Volume 10.9 fL (9.4-12.4); Monocytes # 1.2 K/mcL (0.0-1.3); Monocytes % 6.4 %; Neutrophils # 15.4 K/mcL (1.6-8.9); Platelet Count 196 K/mcL (140-400); Red Blood Count 4.23 M/mcL (3.82-4.97); Red Cell Distribution Width 16.6 % (11.5-14.5); Segmented Neutrophils % 82.1 %; White Blood Count 18.8 K/mcL (4.3-11.1)
[2019-07-29 04:23] LABS: BUN/Creatinine Ratio 63 (6-26); Blood Urea Nitrogen 31 mg/dL (6-20); Calcium 9.3 mg/dL (8.6-10.3); Carbon Dioxide > 45 mEq/L (23-29); Chloride 93 mEq/L (98-107); Glucose 102 mg/dL (70-105); Magnesium 2.4 mg/dL (1.6-2.6); Osmolality,Calculated 301 (280-300); Potassium 4.1 mEq/L (3.5-5.1); Sodium 142 mEq/L (136-145); eGFR For African Americans > 60 (> 60); eGFR For Non-African Americans > 60 (> 60)
[2019-07-29 04:28] LABS: Hypochromasia Present (Not Present)
[2019-07-29 04:29] LABS: Platelet Estimate Normal (Normal); Stomatocytes 3+ (Not Present)
[2019-07-29] MEDS: MethylPREDNISolone 40 MG/ML VIAL IVP SCH ×2 (05:15→17:18)
[2019-07-29] MEDS: Budesonide/Formoterol 160/4.5 1 PUFF INH IH SCH ×2 (07:21→19:48)
[2019-07-29] MEDS: Furosemide 40 MG TABLET PO SCH ×2 (09:04→17:18)
[2019-07-29] MEDS: Pantoprazole 40 MG VIAL IVP SCH ×2 (09:04→20:06)
[2019-07-29] MEDS: Chlorhexidine Rinse 15 ML MOUTHWASH MM SCH ×2 (09:04→20:06)
[2019-07-29] MEDS: Aspirin 81 MG TAB.CHEW PO SCH (09:04)
[2019-07-29] MEDS ORDERED: Baclofen 10 MG TABLET PO PRN (14:57)
[2019-07-29] MEDS: cefTRIAXone 1,000 MG in Water for inj. (sterile) 10 ML IVP SCH (16:21)
[2019-07-29] MEDS: *HR* Rivaroxaban 10 MG TABLET PO SCH (17:18)
[2019-07-30] MEDS: Albuterol 2.5 MG/3 ML NEBULIZER IH SCH ×6 (03:18→23:50)
[2019-07-30] MEDS: MethylPREDNISolone 40 MG/ML VIAL IVP SCH ×2 (05:06→16:51)
[2019-07-30] MEDS: lisinopriL 5 MG TABLET PO SCH (08:26)
[2019-07-30] MEDS: Aspirin 81 MG TAB.CHEW PO SCH (08:26)
[2019-07-30] MEDS: Chlorhexidine Rinse 15 ML MOUTHWASH MM SCH ×2 (08:27→20:18)
[2019-07-30] MEDS: Furosemide 40 MG TABLET PO SCH ×2 (08:27→16:51)
[2019-07-30] MEDS: Pantoprazole 40 MG VIAL IVP SCH ×2 (08:27→20:19)
[2019-07-30] MEDS ORDERED: Morphine Sulfate Oral CONC 10 MG/0.5 ML ORAL.SYG SL PRN (10:51)
[2019-07-30] MEDS: Budesonide/Formoterol 160/4.5 1 PUFF INH IH SCH ×2 (11:11→20:07)
[2019-07-30] MEDS: *HR* Rivaroxaban 10 MG TABLET PO SCH (16:51)
[2019-07-31] MEDS: Albuterol 2.5 MG/3 ML NEBULIZER IH SCH ×4 (03:50→16:15)
[2019-07-31] MEDS: Budesonide/Formoterol 160/4.5 1 PUFF INH IH SCH (07:36)
[2019-07-31] MEDS: Pantoprazole 40 MG VIAL IVP SCH (08:58)
[2019-07-31] MEDS: Aspirin 81 MG TAB.CHEW PO SCH (08:59)
[2019-07-31] MEDS: lisinopriL 5 MG TABLET PO SCH (08:59)
[2019-07-31] MEDS: Furosemide 40 MG TABLET PO SCH ×2 (08:59→16:56)
[2019-07-31] MEDS ORDERED: predniSONE 20 MG TABLET PO SCH (09:00)
[2019-07-31] MEDS: Chlorhexidine Rinse 15 ML MOUTHWASH MM SCH (09:00)
[2019-07-31 14:39] VITALS: BP 134/85
[2019-07-31] MEDS: *HR* Rivaroxaban 10 MG TABLET PO SCH (16:56)
== END 2019-07-31 19:17 | DRG 130 ==
LOC: 2NNU → SUATTDRO 20:08 → ICNU 21:35 → 2ANU 07-27 15:57
PROVIDERS: ADMIT Internal Medicine; ATTEND Family Medicine